=== PATIENT | female | born 1995 | race African-American/Black ===

== ENCOUNTER 2020-02-25 14:46 | Emergency (ER) | payer OTHER ==
[2020-02-25] MEDS ORDERED: ACETAMINOPHEN 325 MG TABLET PO ONE ×2 (15:14→18:15)
--- NOTE | 2020-02-25 15:15 | ER Document Report ---
ED Medical Screen (RME) - General Stated Complaint: LOWER ABDOMINAL PAIN Time Seen by Provider: 02/25/20 15:09 Notes: Patient presents complaining of lower pelvic cramping for the past 2 days. Patient recently had a positive test. Patient denies any vaginal bleeding. Patient denies any urinary symptoms. Patient is G2, P0. Patient without any chronic underlying medical problems. I have greeted and performed a rapid initial assessment of this patient. A comprehensive ED assessment and evaluation of the patient, analysis of test results and completion of the medical decision making process will be conducted by additional ED providers. Physical Exam - Vital signs Vitals: Temp Pulse Resp BP Pulse Ox 98.4 F 85 18 103/64 99 02/25/20 14:57 02/25/20 14:57 02/25/20 14:57 02/25/20 14:57 02/25/20 14:57 - Abdominal Tenderness: Tender - Lower pelvic tenderness, exam limited as patient is in chair Course - Vital Signs Vital signs: Temp Pulse Resp BP Pulse Ox 98.4 F 85 18 103/64 99 02/25/20 14:57 02/25/20 14:57 02/25/20 14:57 02/25/20 14:57 02/25/20 14:57
[2020-02-25 16:03] LABS: ABSOLUTE BASOPHILS # (AUTO) 0.1 10^3/uL (0.0-0.2); ABSOLUTE EOSINOPHILS # (AUTO) 0.1 10^3/uL (0.0-0.6); ABSOLUTE LYMPHOCYTES (AUTO) 2.2 10^3/uL (0.5-4.7); ABSOLUTE MONOCYTES (AUTO) 0.9 10^3/uL (0.1-1.4); ABSOLUTE NEUT (AUTO) 6.2 10^3/uL (1.7-8.2); EOSINOPHILS % (AUTO) 1.1 % (0-6); HEMATOCRIT 31.6 % (36.0-47.0); HEMOGLOBIN 9.9 g/dL (12.0-15.5); LYMPHOCYTES % (AUTO) 23.3 % (13-45); MEAN CORPUSCULAR HEMOGLOBIN 22.2 pg (27.0-33.4); MEAN CORPUSCULAR HGB CONC 31.5 g/dL (32.0-36.0); MEAN CORPUSCULAR VOLUME 71 fl (80-97); MONOCYTES % (AUTO) 9.3 % (3-13); PLATELET COUNT 381 10^3/uL (150-450); RED BLOOD COUNT 4.46 10^6/uL (3.72-5.28); RED CELL DISTRIBUTION WIDTH 16.8 % (11.5-14.0); SEGMENTED NEUTROPHILS % (AUTO) 65.3 % (42-78); TOTAL CELLS COUNTED % (AUTO) 100 %; WHITE BLOOD COUNT 9.5 10^3/uL (4.0-10.5)
[2020-02-25 16:05] LABS: APPEARANCE,URINE CLEAR; BILIRUBIN,URINE NEGATIVE (NEGATIVE); COLOR,URINE YELLOW; GLUCOSE, URINE NEGATIVE (NEGATIVE); KETONES,URINE TRACE mg/dL (NEGATIVE); LEUKOCYTE ESTERASE,URINE NEGATIVE (NEGATIVE); NITRITE,URINE NEGATIVE (NEGATIVE); PROTEIN,URINE NEGATIVE (NEGATIVE); URINE SPECIFIC GRAVITY 1.025; UROBILINOGEN,URINE NEGATIVE mg/dL (<2.0)
[2020-02-25 16:15] LABS: ANION GAP 12 (5-19); BLOOD UREA NITROGEN 13 mg/dL (7-20); CALCIUM 9.5 mg/dL (8.4-10.2); CARBON DIOXIDE 23 mmol/L (22-30); CHLORIDE 105 mmol/L (98-107); GLUCOSE 80 mg/dL (75-110); POTASSIUM 3.8 mmol/L (3.6-5.0)
[2020-02-25 17:31] LABS: CHLAM PCR NOT DETECTED (NOT DETECT)
--- NOTE | 2020-02-25 18:19 | RADIOLOGY REPORT (SQ) ---
EXAM DESCRIPTION: U/S OB TRANSVAGINAL W/O DOP IMAGES COMPLETED DATE/TIME: 02/25/2020 6:00 pm REASON FOR STUDY: pelvic pain COMPARISON: None. TECHNIQUE: Transvaginal static and realtime grayscale images acquired of the pelvis. Additional katie cted spectral and color Doppler images recorded. All images stored on PACs. CLINICAL AGE: 4 week 5 day. bHC,549. LIMITATIONS: None. FINDINGS: UTERUS: No masses. No anomalies. GESTATIONAL SAC: Possible early gestational sac, corresponding to a 5 week 1 day gestational. YOLK SAC: No. POLE: None present. RIGHT ADNEXA: Normal ovary with normal vascular flow. No adnexal free fluid. No adnexal masses. LEFT ADNEXA: Ovary not identified due to poor acoustical window. No adnexal free fluid. No adnexal masses. FREE FLUID: None. OTHER: No other significant finding. IMPRESSION: POSSIBLE EARLY INTRAUTERINE . BHCG LEVEL APPROPRIATE FOR ENDOMETRIAL FINDINGS. CONSIDER F/U BHCG AND/OR ULTRASOUND FOR VERIFICATION AND TO EXCLUDE ECTOPIC . Trimester of : First trimester - 0 to 13 weeks. TECHNICAL DOCUMENTATION: JOB ID: [id number] 2010 [employer]- All Rights Reserved Reading location - IP/workstation name: [email or web address]
--- NOTE | 2020-02-25 19:02 | ER Document Report ---
HPI - HPI Time Seen by Provider: 02/25/20 15:09 Onset: Other - 2 days Onset/Duration: Waxing and waning Quality of pain: Cramping Pain Level: 2 Context: Patient presents complaining of lower pelvic cramping for the past 2 days. Patient recently had a positive test. Patient denies any vaginal bleeding. Patient denies any urinary symptoms. Patient is G2, P0. Patient without any chronic underlying medical problems. Associated Symptoms: denies: Nonproductive cough, Productive cough, Fever, Leg swelling, Nausea, Vomiting, Weakness Exacerbated by: Denies Relieved by: Denies Similar symptoms previously: No Recently seen / treated by doctor: No - ROS ROS below otherwise negative: Yes Systems Reviewed and Negative: Yes All other systems reviewed and negative - CONSTITUTIONAL Constitutional: DENIES: Fever, Chills - NEURO Neurology: DENIES: Headache, Weakness, Vision blurred, Dizzinesss / Vertigo - CARDIOVASCULAR Cardiovascular: DENIES: Chest pain - RESPIRATORY Respiratory: DENIES: Trouble Breathing, Coughing - GASTROINTESTINAL Gastrointestinal: REPORTS: Abdominal Pain. DENIES: Nausea, Patient vomiting, Diarrhea, Black / Bloody Stools - URINARY Urinary: DENIES: Dysuria, Urgency, Frequency - REPRODUCTIVE LMP: 01/23/20 Reproductive: REPORTS: :. DENIES: Postmenopausal, Abnormal bleeding / discharge - MUSCULOSKELETAL Musculoskeletal: DENIES: Back Pain - DERM Skin Color: Normal Skin Problems: None Past Medical History - General Information source: Patient - Social History Smoking Status: Never Smoker Chew tobacco use (# tins/day): No Frequency of alcohol use: Occasional Drug Abuse: None Occupation: None Lives with: Spouse/Significant other Family History: Reviewed & Not Pertinent - Medical History Medical History: Negative Past Surgical History: Reports: Hx Tonsillectomy Vertical Provider Document - CONSTITUTIONAL Agree With Documented VS: Yes Exam Limitations: No Limitations General Appearance: WD/WN, No Apparent Distress - HEENT HEENT: Atraumatic, Normocephalic - NECK Neck: Normal Inspection, Supple - RESPIRATORY Respiratory: Breath Sounds Normal, No Respiratory Distress - CARDIOVASCULAR Cardiovascular: Regular Rate, Regular Rhythm - GI/ABDOMEN Gastrointestinal: Abdomen Soft, Abdomen Tender - lower pelvic, No Organomegaly, Normal Bowel Sounds. negative: Abdominal Guarding - BACK Back: Normal Inspection. negative: CVA Tenderness-Right, CVA Tenderness-Left - MUSCULOSKELETAL/EXTREMETIES Musculoskeletal/Extremeties: MAEW, FROM - NEURO Level of Consciousness: Awake, Alert, Appropriate Motor/Sensory: No Motor Deficit - DERM Integumentary: Warm, Dry, No Rash Course - Re-evaluation Re-evalutation: 02/25/20 18:59 Patient resting comfortably in room, states that cramping has improved. Patient without any vaginal bleeding or discharge at this time. No concern about STI. Patient advised of ultrasound findings and need for close follow-up to include repeat blood work in 2 days and a follow-up ultrasound to evaluate her status. Discussed worsening signs or symptoms of patient should return immediately for. Patient verbalized understanding and is agreeable with discharge plan of care. Patient advised that she will need to take a vitamin with iron due to her anemia. Patient presents with abdominal pain without signs of peritonitis or other life-threatening or serious etiology. Patient appears stable for discharge and has been instructed to return immediately if the symptoms worsen in any way. - Vital Signs Vital signs: Temp Pulse Resp BP Pulse Ox 98.4 F 85 18 103/64 99 02/25/20 17:43 02/25/20 14:57 02/25/20 14:57 02/25/20 14:57 02/25/20 14:57 - Laboratory Results Result Diagrams: 02/25/20 15:33 02/25/20 15:33 Laboratory Results Interpreted: 02/25/20 02/25/20 02/25/20 15:33 15:33 15:33 Hgb 9.9 L Hct 31.6 L MCV 71 L MCH 22.2 L MCHC 31.5 L RDW 16.8 H Beta HCG, Quant 1549.20 H Urine Ketones TRACE H Urine Ascorbic Acid 40 H 02/25/20 19:14 Labs- All tests 24 hr 02/25/20 02/25/20 02/25/20 15:33 15:33 15:33 WBC 9.5 RBC 4.46 Hgb 9.9 L Hct 31.6 L MCV 71 L MCH 22.2 L MCHC 31.5 L RDW 16.8 H Plt Count 381 Lymph % (Auto) 23.3 [place] % (Auto) 9.3 Eos % (Auto) 1.1 Baso % (Auto) 1.0 Absolute Neuts (auto) 6.2 Absolute Lymphs (auto) 2.2 Absolute Monos (auto) 0.9 Absolute Eos (auto) 0.1 Absolute Basos (auto) 0.1 Seg Neutrophils % 65.3 Sodium 139.5 Potassium 3.8 Chloride 105 Carbon Dioxide 23 Anion Gap 12 BUN 13 Creatinine 0.59 Est GFR ( Amer) > 60 Est GFR (MDRD) Non-Af > 60 Glucose 80 Calcium 9.5 Beta HCG, Quant 1549.20 H Total Beta HCG POSITIVE Urine Color Urine Appearance Urine pH Ur Specific D[place] Urine Protein Urine Glucose (UA) Urine Ketones Urine Blood Urine Nitrite Urine Bilirubin Urine Urobilinogen Ur Leukocyte Esterase Urine WBC (Auto) Urine RBC (Auto) U Hyaline Cast (Auto) Urine Bacteria (Auto) Squamous Epi Cells Auto Urine Mucus (Auto) Urine Ascorbic Acid Chlamydia DNA (PCR) N.gonorrhoeae DNA (PCR) Blood Type O POSITIVE Rhogam Indicated RHOGAM NOT INDICATED 02/25/20 02/25/20 15:33 15:33 WBC RBC Hgb Hct MCV MCH MCHC RDW Plt Count Lymph % (Auto) [place] % (Auto) Eos % (Auto) Baso % (Auto) Absolute Neuts (auto) Absolute Lymphs (auto) Absolute Monos (auto) Absolute Eos (auto) Absolute Basos (auto) Seg Neutrophils % Sodium Potassium Chloride Carbon Dioxide Anion Gap BUN Creatinine Est GFR ( Amer) Est GFR (MDRD) Non-Af Glucose Calcium Beta HCG, Quant Total Beta HCG Urine Color YELLOW Urine Appearance CLEAR Urine pH 6.0 Ur Specific Dyer 1.025 Urine Protein NEGATIVE Urine Glucose (UA) NEGATIVE Urine Ketones TRACE H Urine Blood NEGATIVE Urine Nitrite NEGATIVE Urine Bilirubin NEGATIVE Urine Urobilinogen NEGATIVE Ur Leukocyte Esterase NEGATIVE Urine WBC (Auto) 1 Urine RBC (Auto) 0 U Hyaline Cast (Auto) 1 Urine Bacteria (Auto) TRACE Squamous Epi Cells Auto <1 Urine Mucus (Auto) RARE Urine Ascorbic Acid 40 H Chlamydia DNA (PCR) NOT DETECTED N.gonorrhoeae DNA (PCR) NOT DETECTED Blood Type Rhogam Indicated Critical Laboratory Results Reviewed: No Critical Results - Radiology Results Critical Radiology Results Reviewed: No Critical Results Discharge - Discharge Clinical Impression: Pelvic pain affecting Qualifiers: Trimester: first trimester Qualified Code(s): O26.891 - Other specified related conditions, first trimester Anemia Qualifiers: Anemia type: unspecified type Qualified Code(s): D64.9 - Anemia, unspecified Condition: Stable Disposition: HOME, SELF-CARE Instructions: Acetaminophen, Ectopic Precaution ([facility]) Additional Instructions: Return immediately for any new or worsening symptoms: Fever, vomiting, increased pain, vaginal bleeding or any concerning new symptoms Followup with your primary care provider, call tomorrow to make a followup appointment Return to lab in 2 days for repeat blood work. You will need a repeat ultrasound to further evaluate your . Contact your [facility] Wednesday to make a follow-up appointment. Forms: Follow-Up Outpatient Testing Referrals: [facility] [Provider Group] - Follow up tomorrow
[2020-02-25 19:18] VITALS: BP 103/67
== END 2020-02-25 19:16 | disposition home or self-care (01) ==
LOC: ER 14:46
DX: O26.891 Other specified pregnancy related conditions, first trimester (principal); R10.2 Pelvic and perineal pain; R10.9 Unspecified abdominal pain; D64.9 Anemia, unspecified; Z3A.00 Weeks of gestation of pregnancy not specified
CPT/HCPCS: 36415; 76817; 80048; 81001; 84702; 85025; 86900; 86901; 87491; 87591; 99284